=== PATIENT | female | born 1990 | race Caucasian/White ===

== ENCOUNTER 2023-05-04 21:50 | Emergency (ER) | payer MEDICAID ==
[~2023-05-04] VITALS: Ht 162.6 cm; Wt 96.4 kg
[2023-05-04 22:21] VITALS: BP 141/97; PULSE 83; RESP 19; TEMP 99.4; O2SAT 97
[2023-05-04 23:54] LABS: BASOPHILS % (AUTO) 0.3 % (0-1); EOSINOPHILS # (AUTO) 0.3 X10'3 (0-0.9); EOSINOPHILS % (AUTO) 2.6 % (0-6); HEMATOCRIT 36.1 % (35.0-45.0); HEMOGLOBIN 12.2 g/dl (12.0-16.0); LYMPHOCYTES % (AUTO) 38.2 % (21-51); MEAN CORPUSCULAR HEMOGLOBIN 27.5 PG (27.0-31.0); MEAN CORPUSCULAR HGB CONC 33.7 g/dL (33.0-36.5); MEAN CORPUSCULAR VOLUME 81.7 FL (78-98); MEAN PLATELET VOLUME 8.3 FL (7.4-10.4); MONOCYTES # (AUTO) 0.6 X10'3 (0-0.9); MONOCYTES % (AUTO) 6.1 % (2-12); NEUTROPHILS # (AUTO) 5.5 X10'3 (1.8-7.7); NEUTROPHILS % (AUTO) 52.8 % (42-75); PLATELET COUNT 365 X10'3 (140-440); RED BLOOD COUNT 4.42 X10'6 (4.20-5.60); RED CELL DISTRIBUTION WIDTH 14.4 % (11.5-14.5); WHITE BLOOD COUNT 10.4 X10'3 (4.5-11.0)
[2023-05-05 00:09] LABS: ALANINE AMINOTRANSFERASE 23 U/L (12-78); ALBUMIN 3.6 G/DL (3.4-5.0); ALBUMIN/GLOBULIN RATIO 0.9 (1.1-1.5); ALKALINE PHOSPHATASE 55 IU/L (46-116); ANION GAP 7 (8-16); ASPARTATE AMINO TRANSFERASE 13 U/L (10-37); BILIRUBIN,TOTAL 0.2 MG/DL (0.1-1.0); BLOOD UREA NITROGEN 13 MG/DL (7-18); BUN/CREATININE RATIO 15.3 (10.0-20.0); CALCIUM 9.5 MG/DL (8.5-10.1); CHLORIDE 103 MMOL/L (99-107); CREATININE 0.85 MG/DL (0.40-0.90); GLUCOSE 128 MG/DL (70-104); POTASSIUM 3.7 MMOL/L (3.5-5.1); SODIUM 138 MMOL/L (135-145); TOTAL CARBON DIOXIDE 28.1 MMOL/L (24-32); TOTAL PROTEIN 7.5 G/DL (6.4-8.2); eCRCL 81 ML/MIN; eGFR 77 ML/MIN
[2023-05-05 00:17] LABS: PRO BRAIN NATRIURETIC PEPTIDE < 30 PG/ML (0-125)
[2023-05-05] MEDS ORDERED: ibuprofen tablet 400 MG TABLET PO ONE (05:00)
[2023-05-05] MEDS ORDERED: HYDROcodone/acetaminophen 10/325mg tab PO ONE (05:00)
[2023-05-05] MEDS ORDERED: NAPR-1154 PO (05:13)
[2023-05-05] MEDS ORDERED: ACET-1025 PO (05:13)
[2023-05-05] MEDS ORDERED: LIDO1ADH3 TOP (05:13)
== END 2023-05-05 05:44 | disposition home or self-care (01) ==
LOC: ER 21:52
DX: S63.591A Other specified sprain of right wrist, initial encounter (principal); I10 Essential (primary) hypertension; X58.XXXA Exposure to other specified factors, initial encounter; Y93.89 Activity, other specified; Y92.89 Other specified places as the place of occurrence of the external cause; Y99.8 Other external cause status
CPT/HCPCS: 36415; 71045; 73110; 80053; 83880; 84484; 85025; 93005; 99285

== ENCOUNTER 2024-10-10 15:00 | Emergency (ER) | payer MEDICAID ==
[~2024-10-10] VITALS: Ht 162.6 cm; Wt 97.6 kg
[~2024-10-10 15:00] MED LIST: LIDO1ADH3 TOP; NAPR-1154 PO
[2024-10-10 15:09] VITALS: TEMP 98.2
[2024-10-10 16:23] LABS: BILIRUBIN,URINE NEGATIVE (Neg); CLARITY,URINE SLIGHTLY CLOUDY (Clear); COLOR,URINE YELLOW (Yellow); GLUCOSE, URINE NEGATIVE (Neg); KETONES,URINE NEGATIVE (Neg); LEUKOCYTE ESTERASE ,URINE SMALL (Neg); NITRITES, URINE NEGATIVE (Neg); OCCULT BLOOD,URINE NEGATIVE (Neg); PROTEIN,URINE NEGATIVE (Neg); URINE HCG NEGATIVE (NEG); UROBILINOGEN,URINE 0.2 E.U/dL (0.2-1.0)
[2024-10-10 16:28] LABS: UA COLLECTION TYPE CLN CATCH MIDSTREAM
[2024-10-10 16:30] LABS: WBC,URINE 0-4 /HPF (0-4)
[2024-10-10 16:31] LABS: BACTERIA,URINE FEW /HPF (Neg); HYALINE CASTS 0-3 /LPF (NEGATIVE); MUCUS STRANDS FEW /LPF (Neg); RBC,URINE 0-2 /HPF (0-2); SQUAMOUS EPITHELIAL CELL,UR MANY /LPF (FEW)
[2024-10-10 17:18] LABS: BASOPHILS % (AUTO) 0.4 % (0-1); EOSINOPHILS # (AUTO) 0.2 X10'3 (0-0.9); EOSINOPHILS % (AUTO) 2.1 % (0-6); HEMATOCRIT 39.5 % (35.0-45.0); HEMOGLOBIN 13.5 g/dl (12.0-16.0); LYMPHOCYTES # (AUTO) 3.1 X10'3 (1.1-4.8); LYMPHOCYTES % (AUTO) 34.3 % (21-51); MEAN CORPUSCULAR HEMOGLOBIN 29.5 PG (27.0-31.0); MEAN CORPUSCULAR HGB CONC 34.2 g/dL (33.0-36.5); MEAN CORPUSCULAR VOLUME 86.4 FL (78-98); MEAN PLATELET VOLUME 8.2 FL (7.4-10.4); MONOCYTES # (AUTO) 0.5 X10'3 (0-0.9); MONOCYTES % (AUTO) 5.4 % (2-12); NEUTROPHILS # (AUTO) 5.2 X10'3 (1.8-7.7); NEUTROPHILS % (AUTO) 57.8 % (42-75); PLATELET COUNT 293 X10'3 (140-440); RED BLOOD COUNT 4.57 X10'6 (4.20-5.60); RED CELL DISTRIBUTION WIDTH 13.1 % (11.5-14.5)
[2024-10-10 17:29] LABS: ALBUMIN 3.7 G/DL (3.4-5.0); ANION GAP 8 (8-16); BLOOD UREA NITROGEN 12 MG/DL (7-18); BUN/CREATININE RATIO 16.9 (10.0-20.0); CALCIUM 9.1 MG/DL (8.5-10.1); CHLORIDE 102 MMOL/L (99-107); CREATININE 0.71 MG/DL (0.40-0.90); GLUCOSE 92 MG/DL (70-104); POTASSIUM 3.8 MMOL/L (3.5-5.1); SODIUM 138 MMOL/L (135-145); TOTAL CARBON DIOXIDE 27.6 MMOL/L (24-32); eCRCL 96 ML/MIN; eGFR > 90 ML/MIN
[2024-10-10] MEDS: ketorolac trometh 30MG/ML vial 30 MG/ML VIAL IM ONE (17:46)
[2024-10-10 18:32] VITALS: BP 126/80; PULSE 70; RESP 16; O2SAT 99
== END 2024-10-10 18:33 | disposition home or self-care (01) ==
LOC: ER 15:01
DX: F07.81 Postconcussional syndrome (principal); M25.532 Pain in left wrist; G43.909 Migraine, unspecified, not intractable, without status migrainosus; Z88.0 Allergy status to penicillin
CPT/HCPCS: 29125; 36415; 70450; 80048; 81001; 81025; 82948; 85025; 93005; 96372; 99285; J1885

== ENCOUNTER 2024-10-16 14:17 | Emergency (ER) | payer MEDICAID ==
[~2024-10-16] VITALS: Ht 162.6 cm; Wt 97.2 kg
[2024-10-16 14:19] VITALS: BP 161/106; PULSE 95; RESP 16; TEMP 98; O2SAT 95
[2024-10-16] MEDS ORDERED: HYDR-3965 PO (16:24)
== END 2024-10-16 16:36 | disposition home or self-care (01) ==
LOC: ER 14:17
DX: M25.532 Pain in left wrist (principal); Z88.0 Allergy status to penicillin; Z88.1 Allergy status to other antibiotic agents; Z79.899 Other long term (current) drug therapy
CPT/HCPCS: 29125; 73110; 73200; 99284; A6446; A6449